=== PATIENT | female | born 1995 | race Caucasian/White ===

== ENCOUNTER 2019-10-24 16:47 | Emergency (ER) | payer MEDICAID, OTHER ==
[~2019-10-24] VITALS: Ht 160 cm; Wt 76.0 kg
--- NOTE | 2019-10-24 17:14 | NUR ---
ASSUMED CARE OF PATIENT. PATIENT REPORTS SHE IS 6 WEEKS AND CALLED HER OB FOR SOME NAUSEA MEDS. PER DOCTOR SENT HER TO THE ER BECAUSE SHE IS WORRIED SHE IS DEHYDRATED. VS STABLE. LAB IN ROOM. NO ACUTE DISTRESS NOTED. CALL LIGHT IN PLACE. WILL CONTINUE TO MONITOR.
[2019-10-24 17:26] LABS: BASOPHILS # (AUTO) 0.03 x10^3/uL (0-0.1); BASOPHILS % (AUTO) 0 % (0-1); EOSINOPHILS # (AUTO) 0.01 x10^3/uL (0-0.4); EOSINOPHILS % (AUTO) 0 % (1-7); LYMPHOCYTES # (AUTO) 2.01 x10^3/uL (1-3.4); LYMPHOCYTES % (AUTO) 19 % (22-44); MD NO; MEAN CORPUSCULAR HEMOGLOBIN 30.8 pg (27.0-34.8); MEAN CORPUSCULAR HGB CONC 34.4 g/dL (32.4-35.8); MEAN CORPUSCULAR VOLUME 89.4 fL (80-100); MEAN PLATELET VOLUME 7.8 fL (7.4-10.4); MONOCYTES # (AUTO) 0.48 x10^3/uL (0.2-0.8); MONOCYTES % (AUTO) 5 % (2-9); NEUTROPHILS # (AUTO) 7.88 x10^3/uL (1.8-6.8); NEUTROPHILS % (AUTO) 76 % (42-75); PLATELET COUNT 303 x10^3/uL (130-400); RED BLOOD COUNT 4.69 x10^6/uL (3.82-5.3); RED CELL DISTRIBUTION WIDTH 12.9 % (9.6-15.2)
[2019-10-24 17:36] LABS: ALANINE AMINOTRANSFERASE 16 U/L (12-78); ALBUMIN 3.9 g/dL (3.4-5.0); ANION GAP 10 mmol/L (5-15); CALCIUM 8.6 mg/dL (8.5-10.1); CHLORIDE 106 mmol/L (98-107)
[2019-10-24 17:38] LABS: ALKALINE PHOSPHATASE 49 U/L (45-117); CREATININE 0.65 mg/dL (0.55-1.02); TOTAL PROTEIN 7.4 g/dL (6.4-8.2)
--- NOTE | 2019-10-24 17:45 | NUR ---
DR MEDEL HAS UPDATED PATIENT.
--- NOTE | 2019-10-24 17:55 | NUR ---
DR MEDEL HAS UPDATED PATIENT
[2019-10-24] MEDS ORDERED: METOCLOPRAMIDE 10MG TABLET ONE (17:57)
[2019-10-24 18:00] LABS: MICROSCOPIC INDICATED
[2019-10-24] MEDS ORDERED: METOCLOPRAMIDE 10MG TABLET PO PRN (18:00)
[2019-10-24 18:03] LABS: CULTURE INDICATED? YES
[2019-10-24 18:14] VITALS: BP 101/60
== END 2019-10-24 18:17 | disposition home or self-care (01) ==
LOC: ED 17:30
DX: O21.9 Vomiting of pregnancy, unspecified (principal); Z3A.08 8 weeks gestation of pregnancy
CPT/HCPCS: 36415; 80053; 81001; 83605; 85025; 87077; 87086; 87186; 99283

== ENCOUNTER 2020-06-03 08:02 | Inpatient (IN) | payer OTHER ==
[~2020-06-03] VITALS: Ht 160 cm; Wt 93.1 kg
[2020-06-03] MEDS ORDERED: FENTANYL PF 100 MCG/2ML ONE (08:05)
[2020-06-03] MEDS ORDERED: D5%-LACTATED RINGERS 1,000 ML IV SCH (08:09)
[2020-06-03] MEDS ORDERED: LACTATED RINGERS 1,000 ML IV SCH (08:09)
[2020-06-03] MEDS ORDERED: OXYTOCIN 30U/ 0.9% NaCL 500ML 500 ML IV ONE (08:09)
[2020-06-03] MEDS ORDERED: NEWBORN KIT ONE (08:09)
[2020-06-03] MEDS ORDERED: LIDOCAINE 1%, 20ML ONE (08:10)
[2020-06-03] MEDS ORDERED: OXYTOCIN 30U/ 0.9% NaCL 500ML 500 ML ONE ×2 (08:10→10:01)
[2020-06-03] MEDS ORDERED: MISOPROSTOL 200 MCG TABLET ONE (08:10)
[2020-06-03] MEDS: OXYTOCIN 30U/ 0.9% NaCL 500ML 500 ML IV SCH ×2 (08:25→19:35)
[2020-06-03] MEDS ORDERED: FENTANYL PF 100 MCG/2ML IV PRN (08:30)
[2020-06-03] MEDS ORDERED: TERBUTALINE 1 MG/ML, 1ML IVPush PRN (08:30)
[2020-06-03] MEDS ORDERED: TERBUTALINE 1 MG/ML, 1ML SQ PRN (08:30)
[2020-06-03] MEDS ORDERED: FENTANYL PF 100 MCG/2ML IVPush PRN (08:30)
[2020-06-03] MEDS ORDERED: CALCIUM CARBONATE 500 MG TAB.CHEW PO PRN (08:30)
[2020-06-03] MEDS ORDERED: ONDANSETRON 2MG/ML, 2ML IVPush PRN (08:30)
[2020-06-03 08:45] VITALS: BP 145/82
[2020-06-03] MEDS ORDERED: PREN1TAB10 PO (08:59)
[2020-06-03] MEDS ORDERED: ACETAMINOPHEN 325 MG TABLET PO PRN (09:00)
[2020-06-03] MEDS ORDERED: BISACODYL 10 MG SUPP PR PRN (09:00)
[2020-06-03] MEDS ORDERED: MISOPROSTOL 200 MCG TABLET PO PRN (09:00)
[2020-06-03] MEDS ORDERED: METHYLERGONOVINE 0.2 MG/ML IM PRN (09:00)
[2020-06-03] MEDS ORDERED: IBUPROFEN 800 MG TABLET PO PRN (09:00)
[2020-06-03] MEDS ORDERED: ONDANSETRON 2MG/ML, 2ML IV PRN (09:00)
[2020-06-03] MEDS ORDERED: CARBOPROST TROMETHAMINE 250 MCG/ML, 1ML IM PRN (09:00)
[2020-06-03] MEDS ORDERED: METOCLOPRAMIDE 5 MG/ML, 2ML IV PRN (09:00)
[2020-06-03] MEDS ORDERED: SERT-238 PO (09:00)
[2020-06-03] MEDS ORDERED: GLYCERIN ADULT SUPP PR PRN (09:00)
[2020-06-03 09:16] LABS: BASOPHILS # (AUTO) 0.03 x10^3/uL (0-0.1); BASOPHILS % (AUTO) 0 % (0-1); EOSINOPHILS # (AUTO) 0.01 x10^3/uL (0-0.4); EOSINOPHILS % (AUTO) 0 % (1-7); LYMPHOCYTES # (AUTO) 1.01 x10^3/uL (1-3.4); LYMPHOCYTES % (AUTO) 10 % (22-44); MD NO; MEAN CORPUSCULAR HEMOGLOBIN 30.3 pg (27.0-34.8); MEAN CORPUSCULAR VOLUME 92.1 fL (80-100); MEAN PLATELET VOLUME 8.2 fL (7.4-10.4); MONOCYTES # (AUTO) 0.34 x10^3/uL (0.2-0.8); MONOCYTES % (AUTO) 3 % (2-9); NEUTROPHILS # (AUTO) 8.54 x10^3/uL (1.8-6.8); NEUTROPHILS % (AUTO) 86 % (42-75); PLATELET COUNT 248 x10^3/uL (130-400); RED BLOOD COUNT 4.09 x10^6/uL (3.82-5.3); RED CELL DISTRIBUTION WIDTH 13.6 % (9.6-15.2)
[2020-06-03] MEDS ORDERED: IBUPROFEN 600 MG TABLET ONE (10:01)
[2020-06-03] MEDS: IBUPROFEN 600 MG TABLET PO PRN ×3 (10:03→23:23)
[2020-06-03 10:30] VITALS: BP 112/69
[2020-06-03] MEDS: PRENATAL VIT/IRON/FA 1 EACH TABLET PO SCH (10:48)
[2020-06-03] MEDS: OXYcodone/APAP 5/325MG TABLET PO PRN ×2 (10:48→14:55)
[2020-06-03 12:00] VITALS: BP 106/72
[2020-06-03] MEDS: OXYcodone IR 5MG TABLET PO PRN ×2 (16:14→20:27)
[2020-06-03 16:15] VITALS: BP 105/67
[2020-06-03 16:40] LABS: BASOPHILS # (AUTO) 0.02 x10^3/uL (0-0.1); BASOPHILS % (AUTO) 0 % (0-1); EOSINOPHILS % (AUTO) 0 % (1-7); LYMPHOCYTES # (AUTO) 1.61 x10^3/uL (1-3.4); LYMPHOCYTES % (AUTO) 16 % (22-44); MD NO; MEAN CORPUSCULAR HEMOGLOBIN 30.1 pg (27.0-34.8); MEAN CORPUSCULAR HGB CONC 32.6 g/dL (32.4-35.8); MEAN CORPUSCULAR VOLUME 92.5 fL (80-100); MEAN PLATELET VOLUME 8.1 fL (7.4-10.4); MONOCYTES # (AUTO) 0.73 x10^3/uL (0.2-0.8); MONOCYTES % (AUTO) 7 % (2-9); NEUTROPHILS % (AUTO) 77 % (42-75); PLATELET COUNT 265 x10^3/uL (130-400); RED BLOOD COUNT 3.78 x10^6/uL (3.82-5.3); RED CELL DISTRIBUTION WIDTH 13.8 % (9.6-15.2)
[2020-06-03 19:35] VITALS: BP 107/58
[2020-06-03] MEDS: DOCUSATE 100 MG CAPSULE PO PRN (20:27)
[2020-06-03] MEDS: SERTRALINE 100MG TABLET PO SCH (20:27)
[2020-06-04 00:15] VITALS: BP 108/62
[2020-06-04] MEDS: OXYcodone IR 5MG TABLET PO PRN ×3 (02:30→12:13)
[2020-06-04] MEDS: OXYTOCIN 30U/ 0.9% NaCL 500ML 500 ML IV SCH ×3 (04:37→23:55)
[2020-06-04 04:50] VITALS: BP 104/64
[2020-06-04 07:15] VITALS: BP 112/74
[2020-06-04] MEDS: PRENATAL VIT/IRON/FA 1 EACH TABLET PO SCH (07:58)
[2020-06-04] MEDS: SIMETHICONE 80 MG CHEW TAB PO PRN (07:58)
[2020-06-04] MEDS: DOCUSATE 100 MG CAPSULE PO PRN ×2 (07:58→20:37)
[2020-06-04] MEDS: IBUPROFEN 600 MG TABLET PO PRN ×3 (07:58→20:37)
[2020-06-04] MEDS: OXYcodone/APAP 5/325MG TABLET PO PRN ×2 (16:29→20:37)
[2020-06-04 20:00] VITALS: BP 99/64
[2020-06-04] MEDS: SERTRALINE 100MG TABLET PO SCH (20:37)
[2020-06-05] MEDS: OXYcodone/APAP 5/325MG TABLET PO PRN ×3 (02:17→12:11)
[2020-06-05] MEDS: IBUPROFEN 600 MG TABLET PO PRN ×2 (02:17→12:09)
[2020-06-05 07:17] VITALS: BP 112/74
[2020-06-05] MEDS ORDERED: IBUP-1222 PO (07:18)
[2020-06-05] MEDS: DOCUSATE 100 MG CAPSULE PO PRN (07:29)
[2020-06-05] MEDS: SIMETHICONE 80 MG CHEW TAB PO PRN (07:29)
[2020-06-05] MEDS: PRENATAL VIT/IRON/FA 1 EACH TABLET PO SCH (07:29)
== END 2020-06-05 12:15 | disposition home or self-care (01) | DRG 807 ==
LOC: LDOP 08:02 → LDIP 08:15 → 2NW 10:21
PROVIDERS: ADMIT Student in an Organized Health Care Education/Training Program; ATTEND Internal Medicine
PROC: 10E0XZZ Delivery of Products of Conception, External Approach (ICD-10-PCS; principal; 2020-06-03)
PROC: 0UQMXZZ Repair Vulva, External Approach (ICD-10-PCS; 2020-06-03)
DX: O99.344 Other mental disorders complicating childbirth (principal); Z37.0 Single live birth; O34.211 Maternal care for low transverse scar from previous cesarean delivery; F32.9 Major depressive disorder, single episode, unspecified; F41.9 Anxiety disorder, unspecified; O71.82 Other specified trauma to perineum and vulva; Z3A.38 38 weeks gestation of pregnancy; Z90.49 Acquired absence of other specified parts of digestive tract; Z03.818 Encounter for observation for suspected exposure to other biological agents ruled out
CPT/HCPCS: 36415; 85025; 86592; 86762; 86850; 86900; 87340; 87635; 87806; G0378; J3010; G0475; J2590; J7120